=== PATIENT | male | born 1980 | race Caucasian/White ===

== ENCOUNTER 2018-08-24 14:01 | Inpatient (IN) | payer MEDICAID ==
[~2018-08-24] VITALS: Ht 167.6 cm; Wt 74.8 kg
[2018-08-24 14:40] VITALS: Ht 167.6 cm; Wt 74.8 kg
[2018-08-24 17:14] LABS: PLATELET COUNT 347 x10^3mcL (130-400); RED CELL DISTRIBUTION WIDTH 12.1 % (11.5-14.5)
[2018-08-24 17:16] LABS: BASOPHIL % 2.1 % (0-2)
[2018-08-24 17:33] LABS: CALCIUM 9.3 mg/dL (8.5-10.1); CARBON DIOXIDE 26.4 mmol/L (21-32); CHLORIDE SERUM 101 mmol/L (98-107); GFR1 > 60 mL/min; GLUCOSE SERUM 126 mg/dL (74-106); POTASSIUM SERUM 3.7 mmol/L (3.5-5.1); SODIUM SERUM 140 mmol/L (136-145)
[2018-08-24 17:38] LABS: ALBUMIN 3.7 g/dL (3.4-5.0); ALKALINE PHOSPHATASE 59 U/L (46-116); ALT/SGPT 80 U/L (16-63); AST/SGOT 45 U/L (15-37); BILIRUBIN TOTAL 0.25 mg/dL (0.20-1.00); TOTAL PROTEIN, SERUM 7.9 g/dL (6.4-8.2)
[2018-08-24 19:16] LABS: CHOLESTEROL/HDL RATIO 3.6; MAGNESIUM 2.2 mg/dL (1.8-2.4); PHOSPHOROUS 3.5 mg/dL (2.5-4.9)
[2018-08-24 20:46] VITALS: BP 141/101
[2018-08-25 06:32] VITALS: BP 125/84
[2018-08-25 08:00] VITALS: BP 131/88
[2018-08-25 09:03] LABS: microscopic required? YES; urine erythrocyte TRACE (NEGATIVE)
[2018-08-25 12:56] LABS: BASOPHIL % 0.9 % (0-2); PLATELET COUNT 302 x10^3mcL (130-400); RED CELL DISTRIBUTION WIDTH 12.1 % (11.5-14.5)
[2018-08-25 12:57] LABS: CALCIUM 8.6 mg/dL (8.5-10.1); CARBON DIOXIDE 24.5 mmol/L (21-32); CHLORIDE SERUM 105 mmol/L (98-107); GFR1 > 60 mL/min; GLUCOSE SERUM 97 mg/dL (74-106); POTASSIUM SERUM 4.1 mmol/L (3.5-5.1); SODIUM SERUM 140 mmol/L (136-145)
[2018-08-25 13:58] LABS: AMPHETAMINE QUAL UR NONE DETECTED (See below)
[2018-08-25 17:58] VITALS: BP 127/79
[2018-08-25 21:08] VITALS: BP 135/85
[2018-08-26 07:17] VITALS: BP 142/81
[2018-08-26 07:29] LABS: BASOPHIL % 0.7 % (0-2); PLATELET COUNT 323 x10^3mcL (130-400); RED CELL DISTRIBUTION WIDTH 12.1 % (11.5-14.5)
[2018-08-26 07:44] LABS: CALCIUM 8.8 mg/dL (8.5-10.1); CARBON DIOXIDE 25.5 mmol/L (21-32); CHLORIDE SERUM 106 mmol/L (98-107); GFR1 > 60 mL/min; GLUCOSE SERUM 104 mg/dL (74-106); POTASSIUM SERUM 4.2 mmol/L (3.5-5.1); SODIUM SERUM 142 mmol/L (136-145)
[2018-08-26 16:10] VITALS: BP 136/94
[2018-08-26 20:50] VITALS: BP 115/80
[2018-08-27 04:54] VITALS: BP 108/68
[2018-08-27 06:34] LABS: CALCIUM 8.9 mg/dL (8.5-10.1); CARBON DIOXIDE 26.2 mmol/L (21-32); CHLORIDE SERUM 102 mmol/L (98-107); CREATININE SERUM 1.2 mg/dL (0.7-1.3); GFR1 > 60 mL/min; GLUCOSE SERUM 102 mg/dL (74-106); POTASSIUM SERUM 4.3 mmol/L (3.5-5.1); SODIUM SERUM 138 mmol/L (136-145)
[2018-08-27 06:50] LABS: BASOPHIL % 0.7 % (0-2); PLATELET COUNT 383 x10^3mcL (130-400); RED CELL DISTRIBUTION WIDTH 11.8 % (11.5-14.5)
[2018-08-27 07:47] VITALS: BP 122/75
[2018-08-27] MEDS ORDERED: AUG500 PO (11:51)
[2018-08-27] MEDS ORDERED: CLINDAMYCIN HC300 MG PO (11:51)
[2018-08-27] MEDS ORDERED: LAC PO (11:52)
[2018-08-27 12:09] VITALS: BP 122/75
[2018-08-27 12:18] VITALS: BP 122/75
== END 2018-08-27 12:55 | disposition home or self-care (01) | DRG 384 ==
LOC: ED 14:01 → DU 17:43 → MU 17:43 → EDBEDREQ 17:44 → DU 20:24 → MU 23:00
PROVIDERS: Specialist; ADMIT Internal Medicine
DX: S61.411S Laceration without foreign body of right hand, sequela (principal); K76.0 Fatty (change of) liver, not elsewhere classified; E78.5 Hyperlipidemia, unspecified; L03.113 Cellulitis of right upper limb; Z68.26 Body mass index [BMI] 26.0-26.9, adult; Y04.0XXS Assault by unarmed brawl or fight, sequela
CPT/HCPCS: 83880; G0480; J1885; J2270; J2405; J2543; J7030; J7050; Q0092